=== PATIENT | female | born 1955 | race Caucasian/White ===

== ENCOUNTER 2017-06-08 12:21 | Day surgery (SDC) | payer OTHER ==
[2017-06-03 15:30] VITALS: BMI 24.7
[2017-06-08] MEDS ORDERED: PROPOFOL 20 ML ONE (13:50)
[2017-06-08] MEDS ORDERED: MIDAZOLAM HCL 2 MG/2 ML SINGLE DOSE VIAL ONE (13:51)
[2017-06-08] MEDS ORDERED: DESFLURANE GAS 240 ML BOTTLE IH ONE (13:52)
--- NOTE | 2017-06-08 15:20 | OP ---
Operative Note - Note: Operative Date: 06/08/17 Pre-Operative Diagnosis: Endometrial polyp Operation: D&C Hysteroscopy Findings: Endometrial polyp Surgeon: Betsey Lizarraga Anesthesia: General Specimens Removed: Endometrial curettings Estimated Blood Loss (mls): 5
--- NOTE | 2017-06-08 15:26 | HP ---
Admitting History and Physical - Admission Chief Complaint: Abnormal radiologic findings History of Present Illness: 62 yo with abnormal radiologic findings is Pre op for D&C Hysteroscopy. History Source: Patient Limitations to Obtaining History: No Limitations - Past Medical History ...: No - Past Surgical History Past Surgical History: Yes: None - Smoking History Smoking history: Former smoker Have you smoked in the past 12 months: No - Alcohol/Substance Use Hx Alcohol Use: No History of Substance Use: reports: None - Social History Usual Living Arrangement: Yes: Alone History of Recent Travel: No Home Medications - Allergies Allergies/Adverse Reactions: Allergies Allergy/AdvReac Type Severity Reaction Status Date / Time FRUIT Allergy Mild DIARRHEA Uncoded 06/03/17 15:31 - Home Medications Home Medications: Ambulatory Orders NK [No Known Home Medication] 06/03/17 Family Disease History - Family Disease History Family History: Unremarkable Review of Systems - Review of Systems Constitutional: reports: No Symptoms Eyes: reports: No Symptoms HENT: reports: No Symptoms Neck: reports: No Symptoms Cardiovascular: reports: No Symptoms Respiratory: reports: No Symptoms Gastrointestinal: reports: No Symptoms Genitourinary: reports: No Symptoms Breasts: reports: No Symptoms Reported Musculoskeletal: reports: No Symptoms Integumentary: reports: No Symptoms Neurological: reports: No Symptoms Endocrine: reports: No Symptoms Hematology/Lymphatic: reports: No Symptoms Psychiatric: reports: No Symptoms Pain Intensity: 0 Physical Examination Vital Signs: Vital Signs Temperature 98.4 F 06/08/17 13:15 Pulse Rate 63 06/08/17 13:15 Respiratory Rate 20 06/08/17 13:15 Blood Pressure 134/72 06/08/17 13:15 O2 Sat by Pulse Oximetry (%) 98 06/08/17 13:11 Constitutional: Yes: Well Nourished Eyes: Yes: Conjunctiva Clear HENT: Yes: Atraumatic Neck: Yes: Supple Cardiovascular: Yes: Regular Rate and Rhythm Respiratory: Yes: Regular Gastrointestinal: Yes: Normal Bowel Sounds Neurological: Yes: Alert, Oriented ...Motor Strength: WNL Psychiatric: Yes: Alert, Oriented Assessment/Plan Endometrial polyp Pre op for D&C Hysteroscopy Consent signed Anesthesia to see patient
[2017-06-08] MEDS ORDERED: ONDANSETRON 4 MG/2 ML VIAL ONE (15:45)
[2017-06-08] MEDS ORDERED: KETOROLAC TROMETHAMINE 30 MG/1 ML VIAL ONE (15:45)
[2017-06-08] MEDS ORDERED: DEXAMETHASONE SOD PHOSPHATE 4 MG/1 ML VIAL ONE (15:45)
[2017-06-08] MEDS ORDERED: ONDANSETRON 4 MG/2 ML VIAL IVPUSH PRN (16:02)
[2017-06-08] MEDS ORDERED: PROMETHAZINE HCL 25 MG/1 ML VIAL IVPUSH PRN (16:02)
[2017-06-08] MEDS ORDERED: oxyCODONE HCL 5 MG TABLET PO PRN ×2 (16:02)
[2017-06-08] MEDS ORDERED: LACTATED RINGERS SOLUTION 1,000 ML IV SCH (16:15)
[2017-06-08 17:14] VITALS: TEMP 98.3
[2017-06-08 18:07] VITALS: BP 132/80; PULSE 65
--- NOTE | 2017-06-10 11:40 | PATH ---
Surgical Pathology Report Patient Name: DAMON ELLIS [facility]. Rec. #: [id number] /Age/Gender: 1955 (Age: 62) / F Account: [id number] Location: [facility] SURGICAL Taken: 06/08/2017 Received: 06/09/2017 Reported: 06/10/2017 Physicians: Betsey Lizarraga M.D. Specimen(s) Received ENDOMETRIAL CURETTINGS Clinical History Endometrial polyp Final Diagnosis ENDOMETRIUM, CURETTING: BENIGN POLYPOID ADENOMYOMA. Electronically Signed Larry Olvera M.D. Gross Description Received in formalin labeled "endometrial curettage," is a 1.5 x 1.0 x 0.3 cm aggregate of isabel-brown soft tissue fragments admixed with mucus. The formalin is filtered and the specimen is entirely submitted in one cassette. /06/09/201706/09/2017
== END 2017-06-08 18:07 | disposition home or self-care (01) ==
LOC: JASU-SURG 12:21
PROVIDERS: ATTEND Obstetrics & Gynecology
PROC: 0UDB8ZX Extraction of Endometrium, Via Natural or Artificial Opening Endoscopic, Diagnostic (ICD-10-PCS; principal; 2017-06-08 13:30)
DX: N84.0 Polyp of corpus uteri (principal)
CPT/HCPCS: 88305-TC; 94760